=== PATIENT | female | born 2000 | race African-American/Black ===

== ENCOUNTER 2023-05-15 17:46 | Emergency (ER) | payer OTHER, SELFPAY ==
[2023-05-15] MEDS ORDERED: Acetaminophen 500 MG TAB ONE (18:26)
[2023-05-15] MEDS ORDERED: Ipratropium/Albuterol 3 ML NEB ONE (18:31)
[2023-05-15 19:06] LABS: SARS-CoV-2 NAA Rapid Test Not Detected (NotDetected)
[2023-05-15] MEDS ORDERED: Ondansetron ODT 4 MG TAB ONE (19:12)
== END 2023-05-15 19:45 | disposition home or self-care (01) ==
LOC: CSHERS 17:46
DX: J10.1 Influenza due to other identified influenza virus with other respiratory manifestations (principal); J45.901 Unspecified asthma with (acute) exacerbation; Z20.822 Contact with and (suspected) exposure to COVID-19
CPT/HCPCS: 71045; 93005; 94640; 94760; J7620; Q0162